=== PATIENT | female | born 1960 | race Hispanic/Latino ===

== ENCOUNTER 2021-01-23 09:48 | Day surgery (SDC) | payer BC ==
[~2021-01-23 09:48] MED LIST: SODIUM CHLORIDE 0.9% 1000 ML 1,000 ML IV SCH
[2021-01-23] MEDS ORDERED: ONDANSETRON 4 MG/2 ML INJ IV PRN (11:11)
[2021-01-23] MEDS ORDERED: HYDROmorphone 1 MG/1 ML INJ IV PRN (11:11)
[2021-01-23] MEDS ORDERED: HYDROcodone/ACETAMINOPHEN 5-325 MG TAB PO PRN (11:11)
--- NOTE | 2021-01-23 11:11 | Anesthesia Day of Surgery ---
Anesthesia Day of Surgery - Day of Surgery Patient Examined: Yes Patient H&P Reviewed: Yes Patient is NPO: Yes
--- NOTE | 2021-01-23 11:11 | Anesthesia Consultation ---
Anesthesia Consult and Med Hx Date of service: 01/23/21 - Airway Anesthetic Teeth Evaluation: Dentures ROM Head & Neck: Adequate Mental/Hyoid Distance: Adequate Mallampati Class: Class III Intubation Access Assessment: Possibly Difficult - Pre-Operative Health Status ASA Pre-Surgery Classification: ASA3 Proposed Anesthetic Plan: General - Pulmonary Hx Smoking: Yes (2-3 cigs/day) Hx Respiratory Symptoms: No Hx Sleep Apnea: No (ESTEPHANIA PRE SCREEN LOW RISK) - Cardiovascular System Hx Hypertension: No Hx Heart Attack/AMI: No - Central Nervous System CVA: No - Endocrine Hx Renal Disease: No (hydronephrosis; denies CKD) Hx Liver Disease: No Hx Insulin Dependent Diabetes: No Hx Non-Insulin Dependent Diabetes: No Hx Thyroid Disease: No - Hematic Hx Anemia: No - Other Systems Hx Obesity: Yes (BMI 45) - Additional Comments Anesthesia Medical History Comments: No hx anesthetic complications.
[2021-01-23] MEDS ORDERED: WATER FOR IRRIG STERILE 2000 ML IR ONE (11:45)
[2021-01-23] MEDS ORDERED: WATER FOR IRRIG STERILE 1,500 ML BOTTLE IR ONE (11:45)
[2021-01-23] MEDS ORDERED: ceFAZolin/STERILE WATER 2 GM/20 ML SYRINGE IV NR (12:20)
[2021-01-23] MEDS ORDERED: fentaNYL 100 MCG/2 ML INJ ONE (12:21)
[2021-01-23] MEDS ORDERED: LIDOCAINE PF 100 MG/5 ML (CARDIAC SYRINGE) IV ONE (12:21)
[2021-01-23] MEDS ORDERED: propofoL 200 MG/20 ML VIAL IV ONE (12:22)
[2021-01-23] MEDS ORDERED: ceFAZolin/Water 2 GM/20 ML 2 GM/20 ML SYRINGE IV ONE (12:24)
[2021-01-23] MEDS ORDERED: ONDANSETRON 4 MG/2 ML INJ ONE (12:42)
[2021-01-23] MEDS ORDERED: dexAMETHasone 20 MG/5 ML VIAL ONE (12:42)
[2021-01-23] MEDS ORDERED: ePHEDrine SULFATE 50 MG/1 ML INJ ONE (12:54)
--- NOTE | 2021-01-23 13:13 | Post Operative Note ---
Date of procedure: 01/23/21 Pre-op diagnosis: r renal stone Post-op diagnosis: same Findings: r renal stone Procedure: cysto stent Anesthesia: CORINNE Surgeon: JAIRO BRIONES Estimated blood loss: none Pathology: none Condition: stable Disposition: PACU
--- NOTE | 2021-01-23 13:15 | Discharge Summary ---
Short Stay Discharge Plan Activity: other (no straing ) Weight Bearing Status: Full Weight Bearing Diet: low fat, low cholesterol, low salt Follow up with: SHANELL CHAPA MD [Primary Care Provider] - 7 Days JAIRO BRIONES MD [Staff Physician] - 7 Days
--- NOTE | 2021-01-23 14:05 | Fluoroscopy Report ---
INTRAOPERATIVE FLUOROSCOPY: RETROGRADE UROGRAPHY INDICATION: RT KIDNEY STONE. TECHNIQUE: Intraoperative spot images were obtained during the procedure. FINDINGS: On the snowboarding instructor image, there is a round 1 cm stone projecting at the right kidney. On the next image, co ntrast is seen in the right ureter and right renal collecting system outlining the right renal pelvis stone. No ureteral abnormalities are seen. On the third and final image, double-J right ureteral aust[place] nt projects in expected position. Please see procedure note for details. Fluoroscopy Time: 36 seconds. Fluoroscopy Images: 3. Signer Name: Sen Klein MD Signed: 01/23/2021 2:00 PM Workstation Name: [id number]
--- NOTE | 2021-01-23 14:31 | Operative Report ---
DATE OF SURGERY: 01/23/2021 PREOPERATIVE DIAGNOSES: Large right ureteropelvic junction stone with severe pain. No ability to obtain a lithotripsy or stent in [place] because of COVID. POSTOPERATIVE DIAGNOSES: Large right ureteropelvic junction stone with severe pain. No ability to obtain a lithotripsy or stent [place] because of COVID. PROCEDURES: Cystoscopy, retrograde stent placement. SURGEON: Dr. Fernandez. ANESTHESIA: General. FINDINGS: This is a woman with right flank pain and a 1 cm UPJ stone. She now presents for stenting. DESCRIPTION OF PROCEDURE: The patient was brought to the operating room and placed on the operating table. Following induction of anesthesia, placed in the lithotomy position, prepped and draped in usual sterile fashion. Cystourethroscopy showed no bladder lesions. The urethra was deviated and tight and had to be dilated. A retrograde showed a UPJ stone. A wire coiled in the upper pole and a 6-Togolese coiled in that upper pole and in the bladder. The patient tolerated the procedure well. The plan will be followed up lithotripsy and if that does not work, ureteroscopy or percutaneous procedure. TID: [id number] RECEIPT: [id number] GRANT/TANK/VOLODYMYR
--- NOTE | 2021-01-23 15:18 | Post Anesthesia Evaluation ---
- Post Anesthesia Evaluation Patient Participated: Yes Airway Patent: Yes Stable Respiratory Function: Yes Nausea/Vomiting: No Temp > 96.8F: Yes Pain Manageable: Yes Adequeate Hydration: Yes Anesthesia Complications: No
[2021-01-23 19:48] VITALS: BP 141/71
== END 2021-01-23 09:49 | disposition home or self-care (01) ==
LOC: OR 09:48
PROVIDERS: ATTEND Urology
DX: N13.0 Hydronephrosis with ureteropelvic junction obstruction (principal); E66.9 Obesity, unspecified; Z87.891 Personal history of nicotine dependence; Z79.899 Other long term (current) drug therapy; Z98.890 Other specified postprocedural states
CPT/HCPCS: 52332; 74420; A4217; C1758; C1769; C2617; J0690; J1100; J2001; J2405; J2704; J3010; J7030; Q9967

== ENCOUNTER 2021-03-10 07:28 | Day surgery (SDC) | payer BC ==
[~2021-03-10 07:28] MED LIST changes: +IOHEXOL 300 MG/ML 50ML IV ONE; -SODIUM CHLORIDE 0.9% 1000 ML 1,000 ML IV SCH; +WATER FOR IRRIG STERILE 2000 ML IR ONE
[2021-03-10] MEDS ORDERED: ONDANSETRON 4 MG/2 ML INJ IV PRN (08:43)
[2021-03-10] MEDS ORDERED: HYDROmorphone 1 MG/1 ML INJ IV PRN ×2 (08:43)
--- NOTE | 2021-03-10 08:44 | Anesthesia Day of Surgery ---
Anesthesia Day of Surgery - Day of Surgery Patient Examined: Yes Patient H&P Reviewed: Yes Patient is NPO: Yes
--- NOTE | 2021-03-10 08:45 | Anesthesia Consultation ---
Anesthesia Consult and Med Hx Date of service: 03/10/21 - Airway Anesthetic Teeth Evaluation: Edentulous ROM Head & Neck: Adequate Mental/Hyoid Distance: Adequate Mallampati Class: Class II Intubation Access Assessment: Good - Pre-Operative Health Status ASA Pre-Surgery Classification: ASA3 Proposed Anesthetic Plan: General - Pulmonary Hx Smoking: Yes (05/25-05/27 PPD) Hx Respiratory Symptoms: No Hx Sleep Apnea: No (ESTEPHANIA PRE SCREEN HIGH RISK) - Cardiovascular System Hx Hypertension: No (Situational HTN) Hx Heart Attack/AMI: No - Central Nervous System Hx Seizures: No CVA: No Hx Psychiatric Problems: No - Endocrine Hx Renal Disease: Yes (hydronephrosis; denies CKD) Hx Liver Disease: No Hx Insulin Dependent Diabetes: No Hx Non-Insulin Dependent Diabetes: No Hx Thyroid Disease: No - Hematic Hx Anemia: No Hx Sickle Cell Disease: No - Other Systems Hx Alcohol Use: Yes (RARE WINE) Hx Substance Use: No Hx Cancer: No Hx Obesity: Yes (BMI 45)
[2021-03-10] MEDS ORDERED: dexAMETHasone 20 MG/5 ML VIAL ONE (09:00)
[2021-03-10] MEDS ORDERED: ceFAZolin/STERILE WATER 2 GM/20 ML SYRINGE IV NR (09:00)
[2021-03-10] MEDS ORDERED: MIDAZOLAM 2 MG/2 ML INJ IV NR (09:00)
[2021-03-10] MEDS ORDERED: LACTATED RINGERS 1,000 ML IV SCH (09:00)
--- NOTE | 2021-03-10 09:09 | XRay Report ---
ABDOMEN 1 VIEW INDICATION / CLINICAL INFORMATION: RIGHT KIDNEY STONE. COMPARISON: None available. FINDINGS: TUBES / LINES: Right ureteral stent projects in expected position. BOWEL GAS PATTERN: No significant abnormality. FREE AIR / EXTRALUMINAL GAS: None. ADDITIONAL FINDINGS: Adjacent 1.1 and 1.0 cm calcific densities project over the lower right renal sh adow. No definite calcifications the left. No discrete calcification is seen along the right ureteral stent or along the course of the left ureter. IMPRESSION: Right nephrolithiasis and right ureteral stent. Signer Name: Deandre Santos MD Signed: 03/10/2021 9:05 AM Workstation Name: [id number]
[2021-03-10] MEDS ORDERED: LIDOCAINE MPF (2%) 20 MG/1 ML VIAL 5 ML ONE (10:46)
[2021-03-10] MEDS ORDERED: ONDANSETRON 4 MG/2 ML INJ ONE (10:46)
[2021-03-10] MEDS ORDERED: fentaNYL 100 MCG/2 ML INJ ONE (10:46)
[2021-03-10] MEDS ORDERED: propofoL 200 MG/20 ML VIAL IV ONE (10:46)
[2021-03-10] MEDS ORDERED: IOHEXOL 300 MG/ML 50ML IV ONE (11:55)
[2021-03-10] MEDS ORDERED: WATER FOR IRRIG STERILE 2000 ML IR ONE (11:55)
[2021-03-10] MEDS ORDERED: WATER FOR IRRIG STERILE 1,500 ML BOTTLE IR ONE (12:09)
[2021-03-10] MEDS ORDERED: ePHEDrine SULFATE 50 MG/1 ML INJ ONE (12:14)
--- NOTE | 2021-03-10 12:41 | Post Operative Note ---
Date of procedure: 03/10/21 Pre-op diagnosis: stones r upj Post-op diagnosis: same Findings: large # stones Procedure: cysto ureteroscopy laser Anesthesia: GETA Surgeon: JAIRO BRIONES Estimated blood loss: none Pathology: none Condition: stable Disposition: PACU
--- NOTE | 2021-03-10 12:42 | Discharge Summary ---
Short Stay Discharge Plan Activity: other (no straining ) Weight Bearing Status: Non-Weight Bearing Diet: low fat, low cholesterol, low salt Durable Medical Equipment Needed Upon Discharge: other (has jstent ) Follow up with: SHANELL CHAPA MD [Primary Care Provider] - 7 Days JAIRO BRIONES MD [Staff Physician] - 14 Days
[2021-03-10] MEDS ORDERED: LACTATED RINGERS 1,000 ML ONE (12:51)
--- NOTE | 2021-03-10 14:44 | Operative Report ---
DATE OF SURGERY: 03/10/2021 PREOPERATIVE DIAGNOSES: Large right UPJ stone. POSTOPERATIVE DIAGNOSES: Large right UPJ stone. PROCEDURE PERFORMED: Cystoscopy, stent exchange, laser of large number of stones in the right renal pelvis and UPJ. SURGEON: Gustabo Fernandez M.D. ANESTHESIA: General. FINDINGS: This is a woman with moderate obesity with large fragments in the right kidney. She now presents for second stage ureteroscopy. DESCRIPTION OF PROCEDURE: The patient was brought to the operating room and placed on the operating table. Following induction of anesthesia, placed in lithotomy position, prepped and draped in usual sterile fashion. Stent was withdrawn and two wires coiled in the kidney. Flexible ureteroscopy showed the stones, some in the upper pole and some in the lower pole and some at the UPJ. These were all lasered to small fragments. The patient tolerated the procedure well. We followed the stones in each claire. No significant complications. The patient tolerated the procedure well. A double J coiled back in the kidney, 7 x 24. The patient was brought to recovery in stable condition. TID: [id number] RECEIPT: [id number] GRANT/RYLAN/ALIS
--- NOTE | 2021-03-10 16:23 | Fluoroscopy Report ---
INTRAOPERATIVE FLUOROSCOPY: ABDOMEN INDICATION: RT RENAL STONES. TECHNIQUE: Intraoperative spot images were obtained during the procedure. FINDINGS: Submitted imaging demonstrates retrograde access of the right ureter with subsequent stent placement. Multiple right renal stones are noted. Please see the report for the procedure for further details. Fluoroscopy Time: 1 minute, 35 seconds. Fluoroscopy Images: 4. Signer Name: Angelo Santiago MD Signed: 03/10/2021 4:18 PM Workstation Name: [id number]
--- NOTE | 2021-03-10 16:38 | Post Anesthesia Evaluation ---
- Post Anesthesia Evaluation Patient Participated: Yes Airway Patent: Yes Stable Respiratory Function: Yes Nausea/Vomiting: No Temp > 96.8F: Yes Pain Manageable: Yes Adequeate Hydration: Yes Anesthesia Complications: No Block Receding Appropriately: Not Applicable Patient on Ventilator: No
[2021-03-10 19:37] VITALS: BP 126/64
== END 2021-03-10 07:29 | disposition home or self-care (01) ==
LOC: OR 07:28
PROVIDERS: ATTEND Urology
DX: N13.0 Hydronephrosis with ureteropelvic junction obstruction (principal); E66.9 Obesity, unspecified; Z68.41 Body mass index [BMI] 40.0-44.9, adult; F17.210 Nicotine dependence, cigarettes, uncomplicated; Z79.899 Other long term (current) drug therapy; Z98.890 Other specified postprocedural states
CPT/HCPCS: 52356; 74018; 74420; A4217; C1769; C2617; J0690; J1100; J2250; J2405; J2704; J3010; J7120; Q9967

== ENCOUNTER 2021-06-18 07:27 | Outpatient (CLI) | payer BC ==
--- NOTE | 2021-06-18 09:16 | Cat Scan Report ---
CT ABDOMEN AND PELVIS WITHOUT CONTRAST INDICATION / CLINICAL INFORMATION: hydronephrosis with renal and ureteral calculous . TECHNIQUE: Axial CT images were obtained through the abdomen and pelvis without IV contrast. Sagittal and toro l reformatted images. All CT scans at this location are performed using CT dose reduction for ALARA b y means of automated exposure control. COMPARISON: None available. FINDINGS: LOWER CHEST: No significant abnormality. LIVER: No significant abnormality. GALLBLADDER: No significant abnormality. BILE DUCTS: No significant abnormality. PANCREAS: No significant abnormality. SPLEEN: No significant abnormality. ADRENALS: No significant abnormality. RIGHT KIDNEY and URETER: There is moderate right hydronephrosis. A 4.6 mm calculus is identified in t he distal right ureter on image 151, series 2. A 5.6 mm calculus is identified in the proximal right ureter on image 92. There are 4 or 5 calyceal stones in the right kidney with the largest measuring 9 mm at the lower pole. No focal right renal lesion. LEFT KIDNEY and URETER: No significant abnormality. STOMACH and SMALL BOWEL: No significant abnormality. COLON: No significant abnormality. APPENDIX: Not confidently identified. No inflammatory changes in the right lower quadrant. PERITONEUM: No free fluid. No free air. No fluid collection. LYMPH NODES: No significant adenopathy. AORTA and ARTERIES: No significant abnormality. IVC and VEINS: No significant abnormality. URINARY BLADDER: No significant abnormality. REPRODUCTIVE ORGANS: No significant abnormality. ADDITIONAL FINDINGS: None. SKELETAL SYSTEM: Mild degenerative disc disease at the thoracolumbar junction. Moderate lumbar facet arthropathy. No acute bony injury or bone lesion. IMPRESSION: There are multiple right renal calyceal stones and 2 right ureteral stones as described above. Modera te right hydronephrosis. The proximal right ureteral stone appears to be obstructing. Signer Name: Sreekanth Posey Jr, MD Signed: 06/18/2021 9:12 AM Workstation Name: [id number]
== END 2021-06-18 07:28 | disposition home or self-care (01) ==
LOC: CT 07:27
PROVIDERS: ATTEND Urology
DX: N20.2 Calculus of kidney with calculus of ureter (principal); N13.30 Unspecified hydronephrosis; N13.2 Hydronephrosis with renal and ureteral calculous obstruction; M51.34 Other intervertebral disc degeneration, thoracic region; M47.816 Spondylosis without myelopathy or radiculopathy, lumbar region
CPT/HCPCS: 74176

== ENCOUNTER 2021-07-09 09:43 | Day surgery (SDC) | payer BC ==
[~2021-07-09 09:43] MED LIST changes: -IOHEXOL 300 MG/ML 50ML IV ONE; +LACTATED RINGERS 1,000 ML IV SCH; -WATER FOR IRRIG STERILE 2000 ML IR ONE
[2021-07-09] MEDS ORDERED: HYDROcodone/ACETAMINOPHEN 5-325 MG TAB PO PRN (10:20)
[2021-07-09] MEDS ORDERED: HYDROmorphone 1 MG/1 ML INJ IV PRN (10:20)
[2021-07-09] MEDS ORDERED: ONDANSETRON 4 MG/2 ML INJ IV PRN (11:00)
[2021-07-09] MEDS ORDERED: FAMOTIDINE 20 MG/2 ML INJ IV NR (11:15)
[2021-07-09] MEDS ORDERED: FAMOTIDINE 20 MG/2 ML INJ IV ONE (11:28)
[2021-07-09] MEDS ORDERED: ceFAZolin/Water 2 GM/20 ML 2 GM/20 ML SYRINGE IV ONE (11:30)
[2021-07-09] MEDS ORDERED: GENTAMICIN/NS 80 MG/100 ML 100 ML IV ONE ×2 (11:31→11:46)
[2021-07-09] MEDS ORDERED: fentaNYL 100 MCG/2 ML INJ ONE (11:53)
[2021-07-09] MEDS ORDERED: propofoL 200 MG/20 ML VIAL IV ONE (11:53)
[2021-07-09] MEDS ORDERED: LIDOCAINE MPF (2%) 20 MG/1 ML VIAL 5 ML ONE (11:53)
[2021-07-09] MEDS ORDERED: ceFAZolin/STERILE WATER 2 GM/20 ML SYRINGE IV NR (12:00)
[2021-07-09] MEDS ORDERED: ONDANSETRON 4 MG/2 ML INJ ONE (12:20)
[2021-07-09] MEDS ORDERED: dexAMETHasone 20 MG/5 ML VIAL ONE (12:20)
[2021-07-09] MEDS ORDERED: ePHEDrine SULFATE 50 MG/1 ML INJ ONE (12:35)
[2021-07-09] MEDS ORDERED: IOHEXOL 300 MG/ML 100ML IR ONE (12:44)
[2021-07-09 13:47] VITALS: BP 129/61
== END 2021-07-09 14:10 | disposition home or self-care (01) ==
LOC: OR 09:43
PROVIDERS: ATTEND Urology
DX: N13.2 Hydronephrosis with renal and ureteral calculous obstruction (principal); F17.210 Nicotine dependence, cigarettes, uncomplicated; E66.9 Obesity, unspecified; Z79.899 Other long term (current) drug therapy; Z72.89 Other problems related to lifestyle; Z98.890 Other specified postprocedural states; Z68.41 Body mass index [BMI] 40.0-44.9, adult; Z98.891 History of uterine scar from previous surgery
CPT/HCPCS: 52356; 74420; C1726; C1769; C2617; J0690; J1100; J1580; J2405; J2704; J3010; J3490; J7120; Q9967